=== PATIENT | male | born 1980 ===

== ENCOUNTER 2025-04-09 13:21 | Emergency (ER) | payer SELFPAY ==
--- NOTE | 2025-04-09 | ECG_ITS ---
Test Reason : chest pain Blood Pressure : */* mmHG Vent. Rate : 59 BPM Atrial Rate : 59 BPM P-R Int : 108 ms QRS Dur : 98 ms QT Int : 472 ms P-R-T Axes : 66 45 32 degrees QTcB Int : 467 ms Sinus bradycardia with short UT Minimal voltage criteria for LVH, may be normal variant ( Sokolow-Smith ) Borderline ECG No previous ECGs available Referred By: Kandace Penaloza Electronically Signed By: LUIS ENRIQUE GABRIEL MD
[2025-04-09 13:35] VITALS: BP 106/83; PULSE 94; O2SAT 99
[2025-04-09 13:38] VITALS: BP 129/72; PULSE 88; RESP 22; O2SAT 99
--- NOTE | 2025-04-09 13:45 | ED.OVERDOSE ---
HPI - Overdose General Chief Complaint: Overdose Stated Complaint: OD,8 MG NARCAN [employer] Time Seen by Provider: 04/09/25 13:42 Source: patient and RN notes reviewed Mode of arrival: EMS Limitations: language barrier (kazakh speaking) History of Present Illness ED Provider: Ca Jeronimo PA-C HPI Narrative: 45-year-old Telugu-speaking male with unknown medical history, patient is somewhat uncooperative while questioning. I asked patient what happened today, he states that he does not know what happened he just noticed a bunch of police and ambulance around him. I asked patient if he used any substances today, he declines use of any substances. Per EMS report patient was found unresponsive in parking lot, bystanders administered 8 mg of nasal Narcan, when EMS arrived police where Ambu bagging the patient, then patient was alert awake and vomited large amount of emesis and ambulance during transport. Patient told EMS he used fentanyl today, and denied purposeful OD to EMS Patient states he was not trying to harm himself, does not want to harm or kill anyone else, does not have any visual or auditory hallucinations. Related Data Previous Rx's ?Medication ?Instructions ?Recorded buprenorphine 8 mg-naloxone 2 mg 1 film sublingual BID 7 days #14 04/10/25 sublingual film (Suboxone) packets Allergies Allergy/AdvReac Type Severity Reaction Status Date / Time No Known Allergies Allergy Verified 04/10/25 11:38 Review of Systems Review of Systems: CONST: Negative for fever, body aches and chills. HENT: Negative for neck pain/stiffness, headache, congestion, sore throat, swelling. EYES: Negative for discharge/pain or vision changes. RESP: Negative for cough/hemoptysis and shortness of breath. CV: Negative chest pain, difficulty breathing, palpitations. ABD: Negative pain, nausea, vomiting. : Negative increase frequency, dysuria, blood in urine or stool. MUSC: Negative for muscle aches, edema. SKIN: Negative rash, lesions/sores. NEURO: Negative headache, dizziness, weakness. [facility] Past Medical History Attestation statement: The following information was validated with the patient. Source: old records reviewed and nursing notes reviewed Social History Social History Substance Use Type: Opiates Physical Exam Vital Signs: Vital Signs: Last Vital Signs Temp 98.2 F 04/10/25 11:15 Pulse 62 04/10/25 11:15 Resp 16 04/10/25 11:15 BP 115/62 04/10/25 11:15 Pulse Ox 98 04/10/25 11:15 O2 Del Method Room Air 04/10/25 11:15 BMI result Body Mass Index 23.5 GENERAL APPEARANCE: ?AxOx3, tired appearing, no acute distress. HEENT: ?NC, AT. MMM. EOMI, clear conjunctiva, oropharynx clear. NECK: ?Supple without lymphadenopathy.? No stiffness or restricted ROM. HEART:? Normal rate and regular rhythm, normal S1/S2, no m/r/g LUNGS:? CTAB, moving air well. No crackles or wheezes are heard. ABDOMEN: ?Soft, nontender, nondistended with good bowel sounds heard. BACK: No CVAT, no obvious deformity. EXTREMITIES: ?Without cyanosis, clubbing or edema. NEUROLOGICAL: ?Grossly nonfocal. Alert and oriented, moving all 4 extremities. Observed to ambulate with normal gait. Skin: ?Warm and dry without any rash. Course Reevaluation(s) Reevaluation #1: At the time of sign-out, the patient is now verbalizing that he is suicidal without a plan. The care team already saw the patient, they offered sued assessment, the patient declined, he only requested outpatient resources for detox. We will be holding the patient for care team consult. Time: 00:10 Date: 04/10/25 Provider: MARTHA Barrow Patient in physician observation for psychiatric evaluation.? No acute events reported overnight. No current complaints. VS stable.? Patient is in bed search status/pending CARE team evaluation. Will continue to monitor. Time: 23:08 Reevaluation #2: Dr. Chowdhury: The patient was signed out to me at change of shift by the overnight doctor. The patient was seen [facility] this morning. The patient will be discharged from the emergency room with a plan to go directly to the [facility] to possibly initiate some kind of medication assisted therapy for his substance use disorder. The patient had some renal insufficiency in his labs. He was treated with IV fluids. He has a primary care doctor at the [facility] in [place]. He is advised to increase his fluid intake, avoid cocaine, and follow up with his PCP. Time: 10:55 Medications Administered Discontinued Medications Generic Name Dose Route Start Last Admin Trade Name Marco PRN Reason Stop Dose Admin Sodium Chloride 1,000 mls @ 999 mls/hr 04/09/25 17:00 04/09/25 18:23 Ns IV 04/09/25 18:00 Infused .Q1H1M UMM Infusion Sodium Chloride 1,000 mls @ 999 mls/hr 04/09/25 18:30 04/09/25 21:21 Ns IV 04/09/25 19:30 Infused .Q1H1M UMM Infusion Naloxone HCl 8 mg 04/09/25 22:13 04/09/25 23:32 Naloxone Hcl Nasal Take Home 4 Mg [place] NOSTRILALT 04/09/25 22:14 Not Given ONCE ONE Ondansetron HCl 4 mg 04/09/25 15:56 04/09/25 16:00 Ondansetron Odt 4 Mg Tab.Rapdis TRANSLINGU 04/09/25 15:57 4 mg ONCE ONE Administration Ondansetron HCl 4 mg 04/09/25 16:50 04/09/25 16:50 Ondansetron Hcl 4 Mg/2 Ml Vial IVPUSH 04/09/25 16:51 4 mg ONCE ONE Administration Medical Decision Making Medical Decision Making MDM Narrative: 45-year-old Telugu-speaking male with unknown medical history, patient is somewhat uncooperative while questioning. I asked patient what happened today, he states that he does not know what happened he just noticed a bunch of police and ambulance around him. I asked patient if he used any substances today, he declines use of any substances. Per EMS report patient was found unresponsive in parking lot, bystanders administered 8 mg of nasal Narcan, when EMS arrived police where Ambu bagging the patient, then patient was alert awake and vomited large amount of emesis and ambulance during transport. Patient told EMS he used fentanyl today, and denied purposeful OD to EMS Patient states he was not trying to harm himself, does not want to harm or kill anyone else, does not have any visual or auditory hallucinations. VSS, patient normotensive 129/72, pulse rate 88, respiratory rate 22 breaths per minute, O2 saturation 99% on room air. Physical exam benign, cardiac exam with normal rate and rhythm no murmurs/rubs/gallops, lungs clear to auscultation bilaterally, abdomen soft, nondistended, nontender. Patient is somewhat uncooperative telling his story. States he does not know what happened today, states he does not use any drugs, states he did not use anything prior to arrival. Does not have any physical complaints. Patient states he is hungry and thirsty, gave patient sandwich and kristal mendoza. Patient took a few sips of kristal mendoza and instantly vomited large volume of non bloody, nonbilious vomit. Medicating patient with IV fluids, 4 mg IV Zofran. EKG shows bradycardia 59 beats per minute, with shortened NH interval of [address] elevation/depression, T-wave abnormality. Course 20:24- patient has improved after fluids, Zofran, ate turkey sandwich, kristal mendoza, milk and apple juice without vomiting. Labs reveal leukocytosis 20.4, this is likely due to vomiting, administration of 8 mg Narcan prior to arrival. H&H stable, without evidence of electrolyte abnormality. Creatinine elevated at 1.43, given additional bag of fluid, total of 2 L IV fluid. Patient positive for fentanyl, cocaine, THC Patient requesting help for fentanyl addiction. I placed consult to CARE team who will evaluate him in the AM. No SI/HI Will repeat BMP for evaluation of creatinine after administration of fluids. 20:56- Patient being signed out to my colleague Lise Siddiqui PA-C who will resume care while patient awaiting CARE team consult. Patient is aware and understands his course. 21:37-Patient met with CARE team and declined formal detox referral. Patient was given resource booklet, and is being referred to [facility] 3 day follow up and [facility] for outpatient therapy. Patient discharged for self care. VSS Differential Diagnosis Differential Diagnoses: The differential diagnosis associated with the presentation includes Opioid Intoxication Opioid withdrawal Electrolyte imbalance Admission/Observation Consideration of admission/observation: Escalation of care including admission/observation considered Lab Data MDM Lab Attestation statement: I reviewed the patient's lab results. 04/09/25 16:31 04/09/25 21:10 Labs: Lab Results 04/09/25 04/09/25 04/09/25 Range/Units 16:31 18:07 18:37 WBC 20.4 H (4.8-10.8) X10*3/uL RBC 4.67 (4.60-5.80) X10*6/uL Hgb 14.6 (14.0-18.0) g/dl Hct 44.1 (42.0-52.0) % MCV 94.4 (80.0-98.0) fL MCH 31.3 (27.0-33.0) pg MCHC 33.1 (31.0-36.0) g/dl RDW 13.4 (11.0-16.0) % Plt Count 255 (160-400) X10*3/uL MPV 8.7 L (9.4-12.4) fL Immature Gran % (Auto) 1.2 H (0.0-0.4) % Neut % (Auto) 89.3 H (45-73) % Lymph % (Auto) 1.8 L (20-40) % Davison % (Auto) 7.5 (2-11) % Eos % (Auto) 0.0 (0-4) % Baso % (Auto) 0.2 (0-2) % Lymph # (Auto) 0.4 L (1.2-4.9) X10*3/uL Davison # (Auto) 1.5 H (0.1-1.2) X10*3/uL Eos # (Auto) 0.0 (0.0-0.4) X10*3/uL Baso # (Auto) 0.0 (0.0-0.2) X10*3/uL Abs Immat Gran (auto) 0.24 H (0.00-0.03) X10*3/uL Absolute Neuts (auto) 18.2 H (2.0-8.3) x10*3/uL Absolute Nucleated RBC 0.000 (0.0-0.012) X10*3/uL Nucleated RBC % (auto) 0.0 (0.0-0.2) /100WBC Smear Tech's Comments VERIFIED Sodium 143 (135-145) mmol/L Potassium 4.8 (3.3-5.1) mmol/L Chloride 109 H (96-108) mmol/L Carbon Dioxide 23 (22-29) mmol/L Anion Gap 16 (12-20) BUN 25 H (9-16) mg/dL Creatinine 1.43 H (0.5-1.4) mg/dL Estim Creat Clear Calc 60.9 Estimated GFR 53 Random Glucose 70 (60-115) mg/dL Calcium 8.3 L (8.4-10.2) mg/dL Total Bilirubin 0.3 (0.0-1.0) mg/dL AST 267 H (5-37) U/L ALT 224 H (0-40) U/L Alkaline Phosphatase 61 (39-117) U/L Total Protein 6.5 (6.5-8.0) g/dL Albumin 4.2 (3.5-5.0) g/dL Lipase 10 (8-78) U/L Urine Opiates Screen Not Detected (Not Detect) Ur Buprenorphine Scrn Not Detected (Not Detect) ng/mL Ur Oxycodone Screen Not Detected (Not Detect) ng/mL Urine Methadone Screen Not Detected (Not Detect) ng/mL Urine Fentanyl Screen POSITIVE H (Not Detect) Ur Barbiturates Screen Not Detected (Not Detect) Ur Phencyclidine Scrn Not Detected (Not Detect) Ur Amphetamines Screen Not Detected (Not Detect) U Benzodiazepines Scrn Not Detected (Not Detect) Urine Cocaine Screen POSITIVE H (Not Detect) U Marijuana (THC) Screen POSITIVE H (Not Detect) Ethyl Alcohol Cancelled < 10 // Range/Units 21:10 WBC (4.8-10.8) X10*3/uL RBC (4.60-5.80) X10*6/uL Hgb (14.0-18.0) g/dl Hct (42.0-52.0) % MCV (80.0-98.0) fL MCH (27.0-33.0) pg MCHC (31.0-36.0) g/dl RDW (11.0-16.0) % Plt Count (160-400) X10*3/uL MPV (9.4-12.4) fL Immature Gran % (Auto) (0.0-0.4) % Neut % (Auto) (45-73) % Lymph % (Auto) (20-40) % Davison % (Auto) (2-11) % Eos % (Auto) (0-4) % Baso % (Auto) (0-2) % Lymph # (Auto) (1.2-4.9) X10*3/uL Davison # (Auto) (0.1-1.2) X10*3/uL Eos # (Auto) (0.0-0.4) X10*3/uL Baso # (Auto) (0.0-0.2) X10*3/uL Abs Immat Gran (auto) (0.00-0.03) X10*3/uL Absolute Neuts (auto) (2.0-8.3) x10*3/uL Absolute Nucleated RBC (0.0-0.012) X10*3/uL Nucleated RBC % (auto) (0.0-0.2) /100WBC Smear Tech's Comments Sodium 141 (135-145) mmol/L Potassium 4.1 (3.3-5.1) mmol/L Chloride 109 H (96-108) mmol/L Carbon Dioxide 26 (22-29) mmol/L Anion Gap 10 L (12-20) BUN 24 H (9-16) mg/dL Creatinine 1.52 H (0.5-1.4) mg/dL Estim Creat Clear Calc 57.3 Estimated GFR 50 Random Glucose 133 H (60-115) mg/dL Calcium 8.1 L (8.4-10.2) mg/dL Total Bilirubin (0.0-1.0) mg/dL AST (5-37) U/L ALT (0-40) U/L Alkaline Phosphatase (39-117) U/L Total Protein (6.5-8.0) g/dL Albumin (3.5-5.0) g/dL Lipase (8-78) U/L Urine Opiates Screen (Not Detect) Ur Buprenorphine Scrn (Not Detect) ng/mL Ur Oxycodone Screen (Not Detect) ng/mL Urine Methadone Screen (Not Detect) ng/mL Urine Fentanyl Screen (Not Detect) Ur Barbiturates Screen (Not Detect) Ur Phencyclidine Scrn (Not Detect) Ur Amphetamines Screen (Not Detect) U Benzodiazepines Scrn (Not Detect) Urine Cocaine Screen (Not Detect) U Marijuana (THC) Screen (Not Detect) Ethyl Alcohol Independent Interpretation I performed an independent interpretation of an: EKG Interpretation: I independently interpreted the EKG Discharge Plan Discharge Clinical Impression: Drug overdose, Dehydration, Suicidal ideation, Renal insufficiency Patient Disposition: Home, Self-Care Instructions: Dehydration (ED), Adult Overdose (ED) Additional Instructions: Please [facility] directly to [facility] to discuss medication management for your substance use disorder. Also, your kidney function was slightly abnormal. Please make sure you drink a lot of fluids. Also, cocaine is very hard on the kidneys. Please try to avoid any future cocaine or crack use. You are being discharged with Narcan, familiarize yourself with the use of this product, if you use opiates again, and feel as if your going to lose consciousness, immediately administered the Narcan to yourself. Please follow up with your regular doctor at the [facility] in [place]. Return to the emergency room if significantly worse. Prescriptions: No Action buprenorphine-naloxone [Suboxone] 8-2 mg film 1 film sublingual BID 7 Days Qty: 14 0RF Rx Instructions: Place 1 film on inside of (each) cheek, twice per day. Referrals: [facility] [Provider Group, Family Practice] Referral Note: Substance use disorder, renal insufficiency [facility] [Provider Group] Interventions: ED Discharge Assessment Last Done: 04/10/25 11:15 Discharge Date/Time: 04/10/25 11:16 Print Language: Unknown
--- NOTE | 2025-04-09 13:59 | MHC.EDTECH ---
pt biba for overdose. Security at bedside for changeover. Belongings searched and secured in [facility].
[2025-04-09 14:51] VITALS: BMI 23.5
--- NOTE | 2025-04-09 16:13 | PC.NURSE ---
Pt tolerating PO fluids at this time
--- NOTE | 2025-04-09 16:34 | PC.NURSE ---
Pt vomited PO fluids; provider made aware; IV access established and will tx per orders
[2025-04-09 16:42] LABS: Hematocrit 44.1 % (42.0-52.0); Hemoglobin 14.6 g/dl (14.0-18.0); Imm Gran Abs Auto 0.24 X10*3/uL (0.00-0.03); Imm Gran Pct Auto 1.2 % (0.0-0.4); Lymphocytes Absolute Auto 0.4 X10*3/uL (1.2-4.9); MANUAL DIFF FLAG SCAN; Mean Corpuscular HGB Conc 33.1 g/dl (31.0-36.0); Mean Corpuscular Hemoglobin 31.3 pg (27.0-33.0); Mean Corpuscular Volume 94.4 fL (80.0-98.0); NRBC Abs Auto 0.000 X10*3/uL (0.0-0.012); NRBC Pct Auto 0.0 /100WBC (0.0-0.2); Platelet Count 255 X10*3/uL (160-400); Red Blood Count 4.67 X10*6/uL (4.60-5.80); SCAN SMEAR FLAG 1; White Blood Count 20.4 X10*3/uL (4.8-10.8)
[2025-04-09 18:21] VITALS: BP 94/49; PULSE 63; RESP 16; TEMP 36.6; O2SAT 98
[2025-04-09 18:28] LABS: Alanine Aminotransferase 224 U/L (0-40); Albumin Level 4.2 g/dL (3.5-5.0); Alkaline Phosphatase 61 U/L (39-117); Anion Gap 16 (12-20); Aspartate Amino Transferase 267 U/L (5-37); Blood Urea Nitrogen 25 mg/dL (9-16); Calcium 8.3 mg/dL (8.4-10.2); Carbon Dioxide 23 mmol/L (22-29); Chloride 109 mmol/L (96-108); Creatinine Clr Calc Pharmacy 60.9; Estimated Glomerular Filt Rate 53; Lipase 10 U/L (8-78); Potassium 4.8 mmol/L (3.3-5.1); Sodium 143 mmol/L (135-145); Total Protein 6.5 g/dL (6.5-8.0)
--- NOTE | 2025-04-09 18:42 | PC.NURSE ---
Pt drinking PO fluids at this time; no vomiting noted; bp 90's systolic so 2nd LTR NS started per orders; pt now c/o CP; EKG ordered; provider aware
[2025-04-09 18:57] LABS: Cannabinoid Screen Urine POSITIVE (Not Detect)
[2025-04-09 20:52] VITALS: BP 99/55; PULSE 77; RESP 16; TEMP 36.6; O2SAT 99
[2025-04-09 21:37] LABS: Anion Gap 10 (12-20); Blood Urea Nitrogen 24 mg/dL (9-16); Calcium 8.1 mg/dL (8.4-10.2); Carbon Dioxide 26 mmol/L (22-29); Chloride 109 mmol/L (96-108); Creatinine Clr Calc Pharmacy 57.3; Estimated Glomerular Filt Rate 50; Potassium 4.1 mmol/L (3.3-5.1); Sodium 141 mmol/L (135-145)
[2025-04-09 22:16] VITALS: BP 93/41; PULSE 82; RESP 16; TEMP 36.3; O2SAT 96
--- NOTE | 2025-04-09 23:10 | PC.NURSE ---
at time of discharge pt expressing he is homeless, depressed and having thoughts of SI. MD aware, care team consult ordered.
[2025-04-10 05:03] VITALS: BP 113/53; PULSE 60; RESP 13; TEMP 37; O2SAT 96
--- NOTE | 2025-04-10 07:46 | PC.NURSE ---
Pt has been sleeping since this RN arrival at 7am. Chest rise noted. NAD.
[2025-04-10 08:00] VITALS: BP 102/57; PULSE 53; RESP 16; TEMP 36.8; O2SAT 97
--- NOTE | 2025-04-10 09:28 | PC.NURSE ---
Pt is calm, had had breakfast. interpretter present. pt denies SI at this time. wants to speak to someone regarding opiate use and then is willing to be discharged. skin pwd. no vomiting. NAD.
[2025-04-10 10:55] VITALS: BP 115/62; PULSE 62; RESP 16; TEMP 36.8; O2SAT 98
[2025-04-10 11:15] VITALS: BP 115/62; PULSE 62; RESP 16; TEMP 36.8; O2SAT 98
== END 2025-04-10 11:16 | disposition home or self-care (01) ==
PROVIDERS: Emergency Provider Emergency Medicine
DX: T65.894A Toxic effect of other specified substances, undetermined, initial encounter (principal); R40.4 Transient alteration of awareness; Y92.481 Parking lot as the place of occurrence of the external cause; R45.851 Suicidal ideations; N28.9 Disorder of kidney and ureter, unspecified; E86.0 Dehydration; R00.1 Bradycardia, unspecified; F11.20 Opioid dependence, uncomplicated
CPT/HCPCS: 36415; 80048; 80053; 80307; 83690; 85025; 93005; 96361; 96374; 99285; J2405; S9485

== ENCOUNTER → 2025-04-09 18:39 | Outpatient (BNV) | payer SELFPAY | PROVIDERS: Emergency Provider Emergency Medicine; Visit Provider Internal Medicine Cardiovascular Disease | DX: R00.1 Bradycardia, unspecified (principal) | CPT/HCPCS: 93010 ==

== ENCOUNTER 2025-04-10 11:29 | Outpatient (AMB) | payer SELFPAY ==
--- NOTE | 2025-04-10 11:36 | A.OFFVIS_ITS ---
<Statement entered by Loraine Comer RN - 04/10/25 13:05> Recieved a [facility] for Yonny while in ED8H. SHIRAZ Porter and TW consulted with him in the ED S/P overdose and presented services available to him. Yonny was agreeable to Buprenorphine induction and presented as a walk in immediately after he was discharged from the ED. Vital Signs 04/10/25 11:37 Height 5 ft 7 in Weight 163 lb BMI 25.5 BP 116/70 Pulse 78 Pulse Oximetry (%) 96 Intake Visit Reasons: MAT Intake Allergies No Known Allergies Allergy (Verified 04/10/25 11:38) Medication List - Last Reconciled 04/10/25 by CHAZ Max No Known Home Meds HPI Comments Details: The patient is a 45-year-old French-speaking male who presents as a walk-in to the [facility] after completing a consult in the emergency room for an overdose related to opiate use with fentanyl reports 8 years of remission from substance use disorder and due to homelessness and a conflict with ex- partner decided to intravenously use heroin. Has no recollection of what happened after he injected the heroin, recalls waking up in the emergency department at [facility]. Reports smoking 1-2 cigarettes per day, smoking marijuana on a daily basis and will engage in alcohol consumption on Saturdays and Sundays consisting of half a pint of whiskey and 2-3 beers. PFSH Social History Substance Use Type: Opiates Review of Systems Const All systems reviewed & are unremarkable except as noted in HPI and below Physical Exam Vital Signs: Last Vital Signs Pulse 78 04/10/25 11:37 BP 116/70 04/10/25 11:37 Pulse Ox 96 04/10/25 11:37 BMI result Body Mass Index 25.5 Const General: cooperative Nutritional Appearance: average body habitus Orientation/consciousness: patient oriented x3 Limitations: no limitations Neuro General: patient oriented x3 Psych Appearance: grossly normal Mental Status: mental status grossly normal Speech and movement: Normal speech and movement present Affect: Sad affect present Attitude: cooperative Thought process: Normal thought process present Thought content: Normal thought content present Insight: Good insight present (Psych) Judgement: Good judgement present (Psych) Assessment & Plan Assessment & Plan (1) Substance use disorder: Code(s): F19.90 - Other psychoactive substance use, unspecified, uncomplicated Category: Medical Plan The plan of care is to start on buprenorphine-naloxone 8-2 mg, BID the patient reports prior experience taking buprenorphine-naloxone with positive outcome. Education provided re: symptoms of withdrawal if initiating buprenorphine- naloxone before 24 hours of fentanyl use. The patient acknowledges it has been over 24 hours since his last use. Reports his 23-year-old daughter will be picking him up at [facility] and assisting him in obtaining medication from pharmacy and bringing him to a senior living in [place]. Medications: New buprenorphine-naloxone 8-2 mg (Suboxone) Place 1 film on inside of (each) cheek, twice per day. 1 film sublingual BID 14 packets 0RF 7 days Patient Instructions: - Start on buprenorphine-naloxone 8-2 mg, twice per day, wait 24 hours since last use of fentanyl to prevent precipitated withdrawal symptoms. - Reduce consumption of alcohol on the weekends and reduce frequency of smoking cigarettes and marijuana use. - Follow up in one week or sooner, if needed. - Call [facility] with questions, concerns, or to report side effects. Coding Level of Care Code New Pt Level 4 (48746) Diagnoses Substance use disorder F19.90 Time Spent (min) 30 Comment Chart review and education.
[2025-04-10 11:37] VITALS: BP 116/70; PULSE 78; O2SAT 96; BMI 25.5
== END 2025-04-10 13:38 | disposition home or self-care (01) ==
LOC: HO.HCC 11:29
PROVIDERS: Visit Provider Clinical Nurse Specialist Psychiatric/Mental Health
DX: F19.90 Other psychoactive substance use, unspecified, uncomplicated (principal)
CPT/HCPCS: 99204

== ENCOUNTER → 2025-04-10 11:29 | Outpatient (BNVA) | payer SELFPAY | PROVIDERS: Visit Provider Clinical Nurse Specialist Psychiatric/Mental Health | DX: F19.90 Other psychoactive substance use, unspecified, uncomplicated (principal) | CPT/HCPCS: 99202 ==